=== PATIENT | male | born 1955 | race Caucasian/White ===

== ENCOUNTER 2017-07-02 07:42 | Emergency (ER) | payer OTHER ==
[2017-07-02] MEDS ORDERED: DUONEB 0.5-3 MG/3 ml Neb IH ONE ×2 (08:02→08:07)
--- NOTE | 2017-07-02 08:10 | ERPHSYRPT ---
- History of Present Illness Time Seen by Provider: 07/02/17 07:57 Source: patient Patient Subjective Stated Complaint: pt reports cough for approx one week. states he is unable to lay flat without coughing. reports sleeping upright in his computer chair last night. woke this morning and found swelling to his left foot, states "i feel like i stepped on a tack" denies pain to the right foot. reports pain has improved since elevating his feet. Triage Nursing Assessment: pt is aox3, pupils perrl, pt afebrile, resps easy and non labored, expiratory wheezes heard upon auscultation, productive cough heard upon exam with sputum present that is thin and white in color. radial pulses strong and equal, skin is pink warm and dry, minimal swelling noted to the bilat lower extremities. pedal pulses are strong and regular bilat. Physician History: CC: leg swelling Hx: 61 y/o patient moved here last week and does not have local physician. In the past he went to [place] but had a falling out with them. He reports 2 week hx of cough, leg swelling. Some phlegm. No chest pain. No fever or chills. He had prior HTN. He has no hx of heart or lung disease. Former smoker. He has some shortness of breath. He had a night where he had some hallucinations but that is gone. Timing/Duration: week(s) (2) Severity: moderate Allergies/Adverse Reactions: No Known Drug Allergies Allergy (Unverified 07/02/17 08:04) Hx Tetanus, Diphtheria Vaccination/Date Given: No Hx Influenza Vaccination/Date Given: No Hx Pneumococcal Vaccination/Date Given: No Immunizations Up to Date: Yes - Review of Systems Constitutional: Fatigue, Malaise, Weakness, No Fever, No Chills Eyes: No Symptoms Ears, Nose, & Throat: No Symptoms Respiratory: Cough, Dyspnea Cardiac: Edema, No Chest Pain, No Syncope Abdominal/Gastrointestinal: No Abdominal Pain, No Nausea, No Vomiting, No Diarrhea Genitourinary Symptoms: Other (decreased urination), No Dysuria Skin: No Rash Neurological: No Focal Weakness, No Headache, No Parasthesia All Other Systems: Reviewed and Negative - Past Medical History Pertinent Past Medical History: No - Past Surgical History Past Surgical History: Yes Musculoskeletal: Orthopedic Surgery Other Surgical History: compound tibia fx - 1976. lumbar vert fx - 2001 - Social History Smoking Status: Never smoker Drug Use: marijuana Patient Lives Alone: No - Nursing Vital Signs Nursing Vital Signs: Initial Vital Signs Temperature 97.4 F 07/02/17 07:49 Pulse Rate 97 H 07/02/17 07:49 Respiratory Rate 22 07/02/17 07:49 Blood Pressure 146/106 07/02/17 07:49 O2 Sat by Pulse Oximetry 92 L 07/02/17 07:49 Pain Scale Pain Intensity 2 - Physical Exam General Appearance: alert Eye Exam: PERRL/EOMI Ears, Nose, Throat Exam: normal ENT inspection, dry mucous membranes Neck Exam: normal inspection, non-tender, supple Respiratory Exam: crackles/rales, rhonchi, wheezing Cardiovascular Exam: regular rate/rhythm, No murmur, No friction rub, No gallop Gastrointestinal/Abdomen Exam: soft, No tenderness, No distention, No mass, No guarding Male Genitalia Exam: normal genitalia Back Exam: normal inspection, No CVA tenderness, No vertebral tenderness Extremity Exam: pedal edema (bilateral without calf tenderness) Neurologic Exam: alert, oriented x 3, cooperative, program therapist II-XII nml as tested, sensation nml, No motor deficits Skin Exam: warm, dry, No rash SpO2 Interpretation: borderline oxygenation SpO2: 92 Oxygen Delivery: Room Air - Course Nursing assessment & vital signs reviewed: Yes EKG Interpreted by Me: RATE (95), Sinus Rhythm, NORMAL AXIS, NORMAL INTERVALS ( QTc 438), NORMAL ST-T - Radiology Exams cxr X-ray Interpretation: Teleradiologist Report (hazy right middle and lingular interstitial alveolar opacities without consolidation) Ordered Tests: Active Orders 24 hr Category Date Time Status Clean Catch Urine Specimen STAT Care 07/02/17 08:02 Active EKG-ER Only STAT Care 07/02/17 08:02 Active IV Insertion STAT Care 07/02/17 08:02 Active Pulse Oximetry (ED) STAT Care 07/02/17 08:02 Active CHEST 2 VIEWS (PA AND LAT) Stat Exams 07/02/17 08:02 Completed BLOOD CULTURE Stat Lab 07/02/17 08:51 Received CBC W DIFF Stat Lab 07/02/17 08:30 Completed CMP Stat Lab 07/02/17 08:30 Completed CULTURE,URINE Stat Lab 07/02/17 08:02 Received Lactic Acid Stat Lab 07/02/17 08:02 Completed NT PRO BNP Stat Lab 07/02/17 08:30 Completed TROPONIN Q3H Lab 07/02/17 08:15 Completed TROPONIN Q3H Lab 07/02/17 11:15 Ordered TROPONIN Q3H Lab 07/02/17 14:15 Ordered TROPONIN Q3H Lab 07/02/17 17:15 Ordered TROPONIN Q3H Lab 07/02/17 20:15 Ordered UA W/ MICROSCOPIC Stat Lab 07/02/17 08:02 Completed VENOUS BLOOD GAS Stat Lab 07/02/17 08:06 Completed Respiratory Nebulizer STAT RT 07/02/17 08:03 Active Medication Summary Discontinued Medications Generic Name Dose Route Start Last Admin Trade Name Freq PRN Reason Stop Dose Admin Albuterol/Ipratropium 3 ml 07/02/17 08:02 07/02/17 08:00 Duoneb 0.5-3 Mg/3 Ml Neb IH 07/02/17 08:03 3 ml STAT ONE Administration Albuterol/Ipratropium Confirm 07/02/17 08:07 Duoneb 0.5-3 Mg/3 Ml Neb Administered 07/02/17 08:08 Dose 3 ml IH .STK-MED ONE Lab/Rad Data: Laboratory Result Diagrams 07/02/17 08:30 07/02/17 08:30 Laboratory Results 07/02/17 07/02/17 07/02/17 Range/Units 08:30 08:30 08:15 WBC 11.6 H (4.0-10.5) K/mm3 RBC 4.49 (4.1-5.6) M/mm3 Hgb 14.2 (12.5-18.0) gm/dl Hct 42.7 (42-50) % MCV 95.1 (78-100) fl MCH 31.6 (26-32) pg MCHC 33.3 (32-36) g/dl RDW 13.1 (11.5-14.0) % Plt Count 501 H (150-450) K/mm3 MPV 9.8 H (6-9.5) fl Gran % 66.4 H (36.0-66.0) % Lymphocytes % 20.7 L (24.0-44.0) % Monocytes % 11.7 (0.0-12.0) % Eosinophils % 1.1 (0.00-5.0) % Basophils % 0.1 (0.0-0.4) % Basophils # 0.01 (0-0.4) VBG pH (7.32-7.42) VBG pCO2 at Pat Temp (42-55) mm/Hg VBG pO2 at Pat Temp (25-40) mm/Hg VBG HCO3 (22-28) meq/L VBG O2 Sat ([place]) (95-100) VBG Base Excess (-2.0-2.0) VBG Hemoglobin VBG Carboxyhemoglobin (0.0-6.9) % T HGB POC Potassium (3.5-5.1) Sodium 141 (136-145) mEq/L Potassium 3.8 (3.5-5.1) mEq/L Chloride 106 (98-107) mEq/L Carbon Dioxide 27.4 (21-32) mEq/L Anion Gap 11.5 (5-15) MEQ/L BUN 13 (9-20) mg/dL Creatinine 0.92 (0.55-1.30) mg/dl Estimated GFR > 60 ML/MIN Glucose 120 H (70-110) MG/DL Lactic Acid (0.4-2.0) Calcium 8.9 (8.5-10.1) mg/dL Total Bilirubin 0.40 (0.2-1.0) mg/dL AST 50 H (15-37) U/L ALT 100 H (12-78) U/L Alkaline Phosphatase 55 (46-116) U/L Troponin I < 0.017 (0.000-0.056) ng/ml NT-Pro-B Natriuret Pep 52 (0-125) pg/ml Serum Total Protein 7.6 (6.4-8.2) gm/dL Albumin 3.3 L (3.4-5.0) g/dL Ur Collection Type Urine Color (YELLOW) Urine Appearance (CLEAR) Urine pH (5-6) Ur Specific [place] (1.005-1.025) Urine Protein (Negative) Urine Ketones (NEGATIVE) Urine Blood (0-5) John/ul Urine Nitrite (NEGATIVE) Urine Bilirubin (NEGATIVE) Urine Urobilinogen (0-1) mg/dL Ur Leukocyte Esterase (NEGATIVE) Urine Microscopic RBC (0-2) /HPF Urine Microscopic WBC (0-5) /HPF Ur Epithelial Cells (FEW) /HPF Urine Bacteria (NEGATIVE) /HPF Urine Culture Reflexed (NO) Urine Glucose (NEGATIVE) mg/dL Specimen Received 07/02/17 07/02/17 07/02/17 Range/Units 08:06 08:02 08:02 WBC (4.0-10.5) K/mm3 RBC (4.1-5.6) M/mm3 Hgb (12.5-18.0) gm/dl Hct (42-50) % MCV (78-100) fl MCH (26-32) pg MCHC (32-36) g/dl RDW (11.5-14.0) % Plt Count (150-450) K/mm3 MPV (6-9.5) fl Gran % (36.0-66.0) % Lymphocytes % (24.0-44.0) % Monocytes % (0.0-12.0) % Eosinophils % (0.00-5.0) % Basophils % (0.0-0.4) % Basophils # (0-0.4) VBG pH 7.46 H (7.32-7.42) VBG pCO2 at Pat Temp 42 (42-55) mm/Hg VBG pO2 at Pat Temp 64 H (25-40) mm/Hg VBG HCO3 29.9 H* (22-28) meq/L VBG O2 Sat ([place]) 94.8 L (95-100) VBG Base Excess 5.4 H (-2.0-2.0) VBG Hemoglobin 15.2 VBG Carboxyhemoglobin 1.4 (0.0-6.9) % T HGB POC Potassium 4.1 (3.5-5.1) Sodium (136-145) mEq/L Potassium (3.5-5.1) mEq/L Chloride (98-107) mEq/L Carbon Dioxide (21-32) mEq/L Anion Gap (5-15) MEQ/L BUN (9-20) mg/dL Creatinine (0.55-1.30) mg/dl Estimated GFR ML/MIN Glucose (70-110) MG/DL Lactic Acid 1.7 (0.4-2.0) Calcium (8.5-10.1) mg/dL Total Bilirubin (0.2-1.0) mg/dL AST (15-37) U/L ALT (12-78) U/L Alkaline Phosphatase (46-116) U/L Troponin I (0.000-0.056) ng/ml NT-Pro-B Natriuret Pep (0-125) pg/ml Serum Total Protein (6.4-8.2) gm/dL Albumin (3.4-5.0) g/dL Ur Collection Type CCMS Urine Color YELLOW (YELLOW) Urine Appearance CLEAR (CLEAR) Urine pH 8.0 (5-6) Ur Specific [place] 1.005 (1.005-1.025) Urine Protein TRACE (Negative) Urine Ketones NEGATIVE (NEGATIVE) Urine Blood 50 (0-5) John/ul Urine Nitrite NEGATIVE (NEGATIVE) Urine Bilirubin NEGATIVE (NEGATIVE) Urine Urobilinogen 4 (0-1) mg/dL Ur Leukocyte Esterase TRACE (NEGATIVE) Urine Microscopic RBC 2-5 (0-2) /HPF Urine Microscopic WBC 0-2 (0-5) /HPF Ur Epithelial Cells FEW (FEW) /HPF Urine Bacteria FEW (NEGATIVE) /HPF Urine Culture Reflexed YES (NO) Urine Glucose NEGATIVE (NEGATIVE) mg/dL Specimen Received 07/02 0900 - Progress Progress Note: 07/02/17 09:57 He is stable. He wants to go home to care for dogs. Ambulated in the hallway and sats 93%. He is comfortable. He has [facility] assigned to [facility] so will get follow up appt. Rx levaquin and alb MDI. Counseled pt/family regarding: lab results, diagnosis, need for follow-up, rad results - Departure Time of Disposition: 09:58 Departure Disposition: Home Clinical Impression: Pneumonia Condition: Fair Critical Care Time: No Referrals: REMI MARIANO MD [Primary Care Provider] - Instructions: Pneumonia, Adult (DC) Additional Instructions: Rx levaquin to start today. Rx albuterol MDI. Return for problems or concerns. See Dr. Mariano July 10 at 10:45AM at [facility] office. Prescriptions: Albuterol Sulfate [Albuterol Sulfate Hfa] 2 puff IH Q4-6HPRN PRN #1 [email or web address] PRN Reason: cough or wheeze Levofloxacin [Levaquin] 1 tab PO DAILY #7 tablet
[2017-07-02 08:50] LABS: VBG BASE EXCESS 5.4 (-2.0-2.0); VBG CARBOXYHEMOGLOBIN 1.4 % T HGB (0.0-6.9); VBG HCO3- 29.9 meq/L (22-28); VBG HEMOGLOBIN 15.2; VBG O2 SATURATION 94.8 (95-100); VBG POTASSIUM 4.1 (3.5-5.1); VBG pH 7.46 (7.32-7.42)
[2017-07-02 08:56] VITALS: PULSE 90
[2017-07-02 08:56] LABS: BASOPHIL % 0.1 % (0.0-0.4); Basophil (Absolute #) 0.01 (0-0.4); Eosinophil % 1.1 % (0.00-5.0); Eosinophil (Absolute #) 0.13 (0-0.5); Granulocytes % 66.4 % (36.0-66.0); Hematocrit 42.7 % (42-50); Hemoglobin 14.2 gm/dl (12.5-18.0); Lymphocytes % 20.7 % (24.0-44.0); Mean Cell Volume 95.1 fl (78-100); Mean Corpuscular Hemoglobin 31.6 pg (26-32); Mean Corpuscular Hgb Concent. 33.3 g/dl (32-36); Mean Platelet Volume 9.8 fl (6-9.5); Monocyte (Absolute #) 1.36 (0.0-1.3); Monocytes % 11.7 % (0.0-12.0); Platelet Count 501 K/mm3 (150-450); Red Blood Count 4.49 M/mm3 (4.1-5.6); Red Cell Distribution Width 13.1 % (11.5-14.0); White Blood Count 11.6 K/mm3 (4.0-10.5)
--- NOTE | 2017-07-02 09:00 | XRAY ---
Indication: Cough. Comparison: None PA/lateral chest demonstrates hazy right middle lobe and lingular interstitial alveolar opacities without consolidation/large effusion. Heart and mediastinal structures within normal limits. Bony thorax intact with mild degenerative changes.
[2017-07-02 09:15] LABS: ALBUMIN 3.3 g/dL (3.4-5.0); ALKALINE PHOSPHATASE 55 U/L (46-116); ANION GAP 11.5 MEQ/L (5-15); BLOOD UREA NITROGEN 13 mg/dL (9-20); CHLORIDE 106 mEq/L (98-107); Calcium 8.9 mg/dL (8.5-10.1); Carbon Dioxide 27.4 mEq/L (21-32); Creatinine 1 0.92 mg/dl (0.55-1.30); EST GLOMERULAR FILTRATION RATE > 60 ML/MIN; Glucose 120 MG/DL (70-110); NT PRO BNP 52 pg/ml (0-125); Potassium 3.8 mEq/L (3.5-5.1); SGOT/AST 50 U/L (15-37); SGPT/ALT 100 U/L (12-78); SODIUM 141 mEq/L (136-145); Total Protein 7.6 gm/dL (6.4-8.2)
[2017-07-02 09:24] LABS: Appearance CLEAR (CLEAR); Bacteria FEW /HPF (NEGATIVE); Bilirubin NEGATIVE (NEGATIVE); Blood 50 Ery/ul (0-5); Epithelial Cells FEW /HPF (FEW); Glucose NEGATIVE (NEGATIVE); Ketones NEGATIVE (NEGATIVE); Leukocyte Esterase TRACE (NEGATIVE); Nitrite NEGATIVE (NEGATIVE); Protein,Urine Dip TRACE (Negative); Specific Gravity 1.005 (1.005-1.025); Urobilinogen 4 mg/dL (0-1); WBC 0-2 /HPF (0-5)
[2017-07-02 10:23] VITALS: BP 139/91; O2SAT 95
== END 2017-07-02 10:29 | disposition home or self-care (01) ==
LOC: ED 07:42
DX: J18.9 Pneumonia, unspecified organism (principal)
CPT/HCPCS: 36000; 36415; 71046; 80053; 81000; 82805; 83605; 83880; 84484; 85025; 87040; 87086; 93005; 94640; 99284; A9270-GY

== ENCOUNTER 2017-11-12 09:48 | Day surgery (SDC) | payer OTHER ==
--- NOTE | 2017-11-12 08:23 | HP ---
PROCEDURE DATE: 11/12/17 HISTORY OF PRESENT ILLNESS: The patient is a 62 y/o who has, for 10 years, had a cyst on his back. Drained once a few years back. Now, increasing in size. Increasing discomfort sensation. Itches at times. Enlarging, symptomatic back cyst. He presents for consideration of excision. PAST MEDICAL HISTORY: Denies any chronic illnesses. CURRENT MEDICATIONS: Include aspirin, vitamins B12 and D3. ALLERGIES: NKDA. PAST SURGICAL HISTORY: He had right knee surgery in the past. FAMILY HISTORY: Negative with regards to this problem. SOCIAL HISTORY: No smoking or alcohol abuse. REVIEW OF SYSTEMS: 12 systems reviewed. No chest pain or palpitations. Other systems negative or noncontributory other than above and per preadmission questionnaire. PHYSICAL EXAMINATION: GENERAL: No acute distress. HEENT: Sclerae nonicteric. NECK: No JVD. CHEST: Equal excursion. Nonlabored breathing. CVS: Regular rate and rhythm. ABDOMEN: Soft. Nondistended. EXTREMITIES: No significant edema. NEURO: Alert and oriented, moving extremities symmetrically. No gross motor deficits noted. BACK: Enlarging back cyst. IMPRESSION: 1. ENLARGING, SYMPTOMATIC, BACK CYST OR OTHER NODULE. Feel the patient would benefit from excisional biopsy. Risks and benefits explained in detail, but not limited to, bleeding; infection; risk of wound dehiscence possibly requiring wound infection or dehiscence possibly requiring packing; general risk of aches, pains, burning, or numbness. He understands while we excise once he heals the wound likely will not recur, but he could get a similar cyst or nodule adjacent to or elsewhere on his back or body. He understands as well as general risks anesthesia, deep vein thrombosis, pulmonary embolism or pneumonia, but not limited. He understands and agrees to the planned procedure. Will proceed with excisional biopsy enlarging back cyst or nodule as an outpatient.
[~2017-11-12 09:48] MED LIST: Lactated Ringers 1,000 ML IV ONE; Lactated Ringers 1,000 ML IV SCH; Sensorcaine 0.25% 10 ML ONE
[2017-11-12] MEDS ORDERED: BRIDION 200MG/2ML IV ONE (09:49)
[2017-11-12] MEDS ORDERED: Zemuron 100 MG/10 ML IJ ONE (09:49)
[2017-11-12] MEDS ORDERED: SUBLIMAZE 100 MCG/2 ML IV ONE (09:49)
[2017-11-12] MEDS ORDERED: DIPRIVAN 200 MG/20 ML IV ONE (09:49)
[2017-11-12] MEDS ORDERED: Quelicin Fliptop 200 MG/10 ML IJ ONE (09:49)
[2017-11-12] MEDS ORDERED: Zofran 4 MG/2 ML VIAL IV ONE (09:49)
[2017-11-12] MEDS ORDERED: TORAdol 30 mg Injection IJ ONE (09:49)
[2017-11-12] MEDS ORDERED: Decadron 4 MG INJ IV ONE (09:49)
[2017-11-12] MEDS ORDERED: Lactated Ringers 1,000 ML IV ONE (09:53)
[2017-11-12] MEDS ORDERED: KEFZOL 1 GM ONE (11:23)
[2017-11-12 13:30] VITALS: O2SAT 95
[2017-11-12 14:01] VITALS: BP 158/90; PULSE 82
--- NOTE | 2017-11-13 10:26 | OP ---
SURGERY DATE: 11/12/17 SURGERY TIME: 1141 PREOPERATIVE DIAGNOSIS: 1. ENLARGING RECURRENT BACK CYST SITE. POSTOPERATIVE DIAGNOSIS: 1. ENLARGING RECURRENT BACK CYST SITE. PROCEDURE: 1. Excisional biopsy enlarging recurrent back cyst site (approximately 3.5 cm with margins) with intermediate closure. SURGEON: Dr. Chad Sahni. ANESTHESIA: General. ESTIMATED BLOOD LOSS: Minimal. INDICATIONS: As noted above. Risks and benefits explained in detail, but not limited. Consent was obtained. DESCRIPTION OF PROCEDURE AND FINDINGS: The patient was taken to the OR. Site had been confirmed and marked in the preoperative holding area. General anesthesia was induced. Placed in the lateral position. Prepped and draped in the usual sterile fashion. After official time-out, no disagreement in planned procedure. Marking out to clean skin around the previous old scar site overlying the cyst. Dissection was carried down circumferentially around this dense, inflamed cyst with reaction around it dissecting down off the underlying normal fascia. Specimen passed off. Measured about 3.5 cm in size with its margins. It was put on the back table. Did appear to be an inflamed cyst. Passed off. Otherwise, pinpoint cautery. Good hemostasis noted. Wound was irrigated out. The deep fascia was closed with interrupted 3-0 Vicryl. Superficial subq and deep dermis closed with interrupted 2-0 Vicryl. Good hemostasis was noted. Skin closed with 4-0 Vicryl. Interrupted 3-0 Prolene was used to reinforce the area given the location on the back. Steri-strips and sterile dressing applied. Patient tolerated the procedure well. There were no immediate complications. There was no family available to discuss any findings with out in the waiting area. Will see him back in the office next week. May leave the Prolene sutures in a couple weeks. Given the inflamed nature of the cyst, although no packing was required, felt it would be safer to place him on Bactrim DS for a few days postoperatively.
== END 2017-11-12 13:45 | disposition home or self-care (01) ==
LOC: SDC 09:48
PROVIDERS: ATTEND Surgery
DX: L72.9 Follicular cyst of the skin and subcutaneous tissue, unspecified (principal); R20.8 Other disturbances of skin sensation
CPT/HCPCS: 94250; J0330; J0690; J1100; J1885; J2405; J2704; J3010

== ENCOUNTER 2023-05-29 05:23 | Emergency (ER) | payer OTHER ==
--- NOTE | 2023-05-29 05:26 | ERPHSYRPT ---
- History of Present Illness Time Seen by Provider: 05/29/23 05:25 Source: patient, family Exam Limitations: no limitations Physician History: This is a right-handed 67-year-old white male patient of Dr. Mariano who [facility]. He did not hit his head he fell directly onto his right shoulder. He presents with right shoulder pain. Patient has a history of hypertension. Patient has no head or neck pain. He has no other areas of pain or injury. Occurred: just prior to arrival Reason for Fall: fell from standing pos Injuries/Pain Location: upper extremity (Right shoulder) Loss of Consciousness: no loss of consciousness Quality: aching Severity of Pain-Max: moderate Severity of Pain-Current: moderate Modifying Factors: Improves With: movement Associated Symptoms (Fall): extremity injury (Right shoulder) Allergies/Adverse Reactions: No Known Drug Allergies Allergy (Verified 05/29/23 05:59) Home Medications: Multivitamin [Multivitamins] 1 each PO DAILY 10/17/17 [History] Hx Tetanus, Diphtheria Vaccination/Date Given: No Hx Influenza Vaccination/Date Given: No Hx Pneumococcal Vaccination/Date Given: No Travel Risk - International Travel Have you traveled outside of the country in past 3 weeks: No - Coronavirus Screening Are you exhibiting any of the following symptoms?: No Close contact with a COVID-19 positive Pt in past 14-21 Days: No - Review of Systems Constitutional: No Symptoms Eyes: No Symptoms Ears, Nose, & Throat: No Symptoms Respiratory: No Symptoms Cardiac: No Symptoms Abdominal/Gastrointestinal: No Symptoms Genitourinary Symptoms: No Symptoms Musculoskeletal: Fall, Injury (Right shoulder) Skin: No Symptoms Neurological: No Symptoms Psychological: No Symptoms Endocrine: No Symptoms Hematologic/Lymphatic: No Symptoms Immunological/Allergic: No Symptoms All Other Systems: Reviewed and Negative - Past Medical History Pertinent Past Medical History: No Neurological History: Other ENT History: No Pertinent History Cardiac History: Hypertension Respiratory History: Pneumonia Endocrine Medical History: No Pertinent History Musculoskeletal History: Arthritis GI Medical History: No Pertinent History History: No Pertinent History Psycho-Social History: No Pertinent History Male Reproductive Disorders: No Pertinent History Other Medical History: lumbar vert fx - 2001- no surgical repair. hx bells palsey left side- 2004 - Past Surgical History Past Surgical History: Yes Neuro Surgical History: No Pertinent History Cardiac: No Pertinent History Respiratory: No Pertinent History Gastrointestinal: No Pertinent History Genitourinary: No Pertinent History Musculoskeletal: Orthopedic Surgery Male Surgical History: No Pertinent History Other Surgical History: compound tibia fx - 1976 - Social History Smoking Status: Former smoker Exposure to second hand smoke: No Drug Use: marijuana Patient Lives Alone: No - Nursing Vital Signs Nursing Vital Signs: Initial Vital Signs Temperature 98.1 F 05/29/23 05:32 Pulse Rate 67 05/29/23 05:32 Respiratory Rate 24 05/29/23 05:32 Blood Pressure 217/87 05/29/23 05:32 O2 Sat by Pulse Oximetry 98 05/29/23 05:32 Pain Scale Pain Intensity 10 - [place] Coma Score Best Eye Response ([place]): (4) open spontaneously Best Verbal Response ([place]): (5) oriented Best Motor Response ([place]): (6) obeys commands [place] Total: 15 - Physical Exam General Appearance: mild distress, alert, anxiety Head Injury: no evidence of injury Eye Exam: PERRL/EOMI, eyes nml inspection ENT Exam: airway nml, nml ext.inspection Neck Exam: supple, trachea midline, full range of motion, normal alignment, normal inspection Respiratory/Chest Exam: No chest tenderness, No respiratory distress Gastrointestinal Exam: No tenderness Rectal Exam: not done Back Exam: normal inspection, normal range of motion, No CVA tenderness, No vertebral tenderness Extremity Exam: pelvis stable, limited range of motion (Right shoulder), evidence of injury (Right shoulder) Neurologic Exam: alert, oriented x 3, cooperative, waitress II-XII nml as tested, normal mood/affect, nml cerebellar function, nml station & gait, sensation nml Skin Exam: normal color, warm, dry SpO2 Interpretation: normal O2 Delivery: Room Air Procedures - Joint Reduction Time of Procedure: 06:30 Timeout: Performed Joint Reduction Site: Right, shoulder Conscious Sedation: Yes Reduction Attempts: 1 Pre-Procedure Neurovascular Exam: neurovascular intact, well perfused, no neuro deficit Post Procedure Neurovascular Exam: neurovascular intact, good alignment, unchanged from pre-exam Post Joint Reduction Film: joint reduced Progress: Patient tolerated the procedure well. Patient conversing. Sling placed right arm - Course Nursing assessment & vital signs reviewed: Yes Ordered Tests: Active Orders 24 hr Category Date Time Status HUMERUS Stat Exams 05/29/23 05:34 Ordered SHOULDER Stat Exams 05/29/23 05:34 Ordered SHOULDER Stat Exams 05/29/23 06:29 Ordered Medication Summary Generic Name Dose Route Start Last Admin Trade Name Freq PRN Reason Stop Dose Admin Sodium Chloride 1,000 mls @ 125 mls/hr 05/29/23 06:30 05/29/23 06:42 Sodium Chloride 0.9% 1000 Ml IV 06/28/23 06:29 125 mls/hr .Q8H RINA Administration Discontinued Medications Generic Name Dose Route Start Last Admin Trade Name Ralph PRN Reason Stop Dose Admin Etomidate 10 mg 05/29/23 06:17 05/29/23 06:25 Etomidate 20 Mg/10 Ml Amp IV 05/29/23 06:18 10 mg STAT ONE Administration Hydromorphone HCl Confirm 05/29/23 06:15 Hydromorphone 1 Mg/1ml Inj Administered 05/29/23 06:16 Dose 1 mg .ROUTE .STK-MED ONE Hydromorphone HCl 1 mg 05/29/23 06:17 05/29/23 06:26 Hydromorphone 1 Mg/1ml Inj IV 05/29/23 06:18 1 mg STAT ONE Administration Sodium Chloride Confirm 05/29/23 06:15 Sodium Chloride 0.9% 1000 Ml Administered 05/29/23 06:16 Dose 1,000 mls @ ud .ROUTE .STK-MED ONE Prochlorperazine Edisylate Confirm 05/29/23 06:15 Prochlorperazine Edisylate 10 Mg/2 Ml Vial Administered 05/29/23 06:16 Dose 10 mg .ROUTE .STK-MED ONE Prochlorperazine Edisylate 5 mg 05/29/23 06:17 05/29/23 06:24 Prochlorperazine Edisylate 10 Mg/2 Ml Vial IV 05/29/23 06:18 5 mg STAT ONE Administration - Progress Progress: improved Progress Note: 05/29/23 06:10 This patient's medical issue is 1 of low complexity. The level complex in the workup performed is based on review of the patient's past medical history, review of patient's medication list, review the patient's drug allergy list, history present illness and physical findings on examination. The workup in this patient includes x-ray of right shoulder, placement of intravenous line and provided the patient with intravenous Dilaudid, intravenous Compazine, and intravenous etomidate for conscious sedation. I reviewed and interpreted the x-ray of the right shoulder. The patient has an anteriorinferior dislocation of the right shoulder. I do not appreciate a fracture on this film. 05/29/23 06:43 I reviewed and interpreted the postreduction x-ray of the right shoulder. There is successful reduction of the anteriorinferior dislocation of the right shoulder. There are no acute fractures present. Counseled pt/family regarding: diagnosis, need for follow-up, rad results Medical Desision Making - Diagnostic Testing Diagnostic test were ordered, analyzed, and reviewed by me: Yes Radiological Interpretation: Interpreted by me - Risk of complications The pt has a mod risk of morbidity or mortality based on: Need for prescription drug management - Departure Departure Disposition: Home Clinical Impression: Dislocation of right shoulder joint Condition: Stable Critical Care Time: No Referrals: REMI MARIANO MD [Primary Care Provider] - Follow up/PCP as directed Additional Instructions: Wear sling for comfort. Follow-up at [facility] orthopedic clinic Sunday through Sunday 8 AM to 10 AM for reevaluation and management. It is a walk-in clinic and you do not need an appointment. Take your medications as prescribed. May apply ice pack to the right shoulder area 3 times a day for the next 48 hours. May add ibuprofen 600 mg orally with food 3 times a day for the next 5 days if there are no contraindications to do so. Prescriptions: Oxycodone HCl/Acetaminophen [Percocet 5-325 mg Tablet] 1 each PO Q8H PRN PRN #6 tablet MDD 3 PRN Reason: Moderate To Severe Pain
[2023-05-29 05:34] VITALS: TEMP 98.1
[2023-05-29] MEDS ORDERED: Compazine 10 MG/2 ML ONE (06:15)
[2023-05-29] MEDS ORDERED: Sodium Chloride 0.9% 1000 ML 1,000 ML ONE (06:15)
[2023-05-29] MEDS ORDERED: Hydromorphone 1 mg/ml Injection ONE (06:15)
[2023-05-29] MEDS ORDERED: Amidate 20 MG/10 ML IV ONE ×2 (06:17→06:42)
[2023-05-29] MEDS ORDERED: Compazine 10 MG/2 ML IV ONE (06:17)
[2023-05-29] MEDS ORDERED: Hydromorphone 1 mg/ml Injection IV ONE (06:17)
[2023-05-29] MEDS ORDERED: Sodium Chloride 0.9% 1000 ML 1,000 ML IV SCH (06:30)
[2023-05-29 08:10] VITALS: BP 165/96; PULSE 95; RESP 18; O2SAT 99
--- NOTE | 2023-05-29 08:55 | XRAY ---
Indication: Post reduction. Comparison: Taken earlier in the day. Single AP right shoulder demonstrates successful reduction previous humeral head dislocation. Stable osteopenia and AC degenerative arthropathy. No other bony, articular, or soft tissue abnormalities.
--- NOTE | 2023-05-29 08:55 | XRAY ---
Indication: Pain following fall. Comparison: None 2 view right humerus demonstrates anterior inferior humeral head dislocation. Punctate ossification inferior glenoid process either displaced fracture versus degenerative heterotopic ossification. No other bony, articular, or soft tissue abnormalities.
--- NOTE | 2023-05-29 08:55 | XRAY ---
Indication: Pain following fall. Comparison: None 3 view right shoulder demonstrates anterior inferior humeral head dislocation. Punctate ossification inferior glenoid process either displaced fracture versus degenerative heterotopic ossification. Elsewhere osteopenia, mild AC degenerative arthropathy, and mild multilevel thoracic degenerative spondylosis.
== END 2023-05-29 08:10 | disposition home or self-care (01) ==
LOC: ED 05:23
DX: S43.014A Anterior dislocation of right humerus, initial encounter (principal); W19.XXXA Unspecified fall, initial encounter; Y93.K9 Activity, other involving animal care; I10 Essential (primary) hypertension; Z79.891 Long term (current) use of opiate analgesic
CPT/HCPCS: 23655; 36000; 73030; 73060; 94799; 96374; 96375; 96376; 99284; J1170